=== PATIENT | female | born 1965 | race Hispanic/Latino ===

== ENCOUNTER 2016-09-27 19:09 | Emergency (ER) | payer BC ==
[2016-09-27 19:38] VITALS: RESP 20; TEMP 98.1; O2SAT 98
--- NOTE | 2016-09-27 19:41 | C.PDOC ---
History Of Present Illness Patient presents to the emergency room with right flank pain and right sided abdominal pain that started yesterday. Patient states that it hurts to move. Patient denies any fever, chills, nausea, vomiting, diarrhea, or any other complaints. Time Seen by Provider: 09/27/16 19:41 Chief Complaint (Nursing): Abdominal Pain History Per: Patient History/Exam Limitations: no limitations Onset/Duration Of Symptoms: Days (1) Current Symptoms Are (Timing): Still Present Severity: Moderate Pain Scale Rating Of: 5 Location Of Pain/Discomfort: RLQ Quality Of Discomfort: "Pain" Associated Symptoms: Back Pain (Right flank pain). denies: Fever, Chills, Nausea, Vomiting, Diarrhea Exacerbating Factors: Movement Alleviating Factors: None Recent travel outside of the [place]: No Past Medical History Reviewed: Historical Data, Nursing Documentation, Vital Signs Vital Signs: Last Vital Signs Temp 98.1 F 09/27/16 19:35 Pulse 76 09/27/16 19:35 Resp 20 09/27/16 19:35 BP 116/68 09/27/16 21:22 Pulse Ox 98 09/27/16 20:54 - [employer] Procedures INJECT/INFUSE NEC (06/01/14) Family History: States: Unknown Family Hx - Social History Hx Alcohol Use: Yes Hx Substance Use: No - Immunization History Hx Tetanus Toxoid Vaccination: No Hx Influenza Vaccination: Yes Review Of Systems Constitutional: Negative for: Fever, Chills Cardiovascular: Negative for: Chest Pain Respiratory: Negative for: Shortness of Breath Gastrointestinal: Positive for: Abdominal Pain (Right sided abdominal pain. ). Negative for: Nausea, Vomiting, Diarrhea Musculoskeletal: Positive for: Back Pain (Right flank pain) Physical Exam - Physical Exam Appears: Non-toxic Skin: Warm, Dry Cardiovascular: Rhythm Regular Respiratory: No Rales, No Rhonchi, No Wheezing Gastrointestinal/Abdominal: Soft, Tenderness (RLQ tenderness), No Distention, Guarding (Voluntary guarding), No Rebound Extremity: Normal ROM, No Tenderness Neurological/Psych: Oriented x3, Normal Speech ED Course And Treatment - Laboratory Results Result Diagrams: 09/27/16 19:57 09/27/16 19:57 O2 Sat by Pulse Oximetry: 98 Pulse Ox Interpretation: Normal Progress Note: blood work, ivf, ct scan Reevaluation Time: 22:48 Reassessment Condition: Improved Disposition Counseled Patient/Family Regarding: Studies Performed, Diagnosis, Need For Followup, Rx Given - Disposition Referrals: [facility] [Outside] Disposition: HOME/ ROUTINE Disposition Time: 19:41 Condition: FAIR Prescriptions: Polyethylene Glycol 3350 [Miralax] 17 gm PO DAILY #270 ml Instructions: Abdominal Pain (ED), Constipation (DC) Print Language: JAPANESE - Clinical Impression Clinical Impression: Abdominal pain, Constipation - Scribe Statement The provider has reviewed the documentation as recorded by the Scribe Provider Attestation: Favio Perez Provider Scribe Attestation: All medical record entries made by the Scribe were at my direction and personally dictated by me. I have reviewed the chart and agree that the record accurately reflects my personal performance of the history, physical exam, medical decision making, and the department course for this patient. I have also personally directed, reviewed, and agree with the discharge instructions and disposition.
[2016-09-27] MEDS ORDERED: Sodium Chloride 0.9% 1,000 ML IV ONE (19:44)
[2016-09-27] MEDS ORDERED: Sodium Chloride 0.9% 1,000 ML ONE (19:58)
[2016-09-27 20:03] LABS: RBC URINE 6 /hpf (0-3); URINE BACTERIA RARE (<OCC); URINE BILIRUBIN NEGATIVE (NEGATIVE); URINE BLOOD 1+ (NEGATIVE); URINE COLOR Amber (YELLOW); URINE GLUCOSE (UA) NORMAL (Normal); URINE KETONE NEGATIVE (NEGATIVE); URINE PROTEIN NEGATIVE (NEGATIVE); WBC URINE 6 /hpf (0-5)
[2016-09-27 20:04] LABS: URINE LEUKOCYTE ESTERASE TRACE Leu/uL (Negative)
[2016-09-27 20:09] LABS: CHLORIDE 103 mmol/L (98-107)
[2016-09-27 20:10] LABS: POTASSIUM 3.5 mmol/L (3.6-5.2); SODIUM 140 mmol/L (132-148)
[2016-09-27 20:12] LABS: AST/SGOT 47 U/L (14-36); BILIRUBIN,TOTAL 1.4 mg/dL (0.2-1.3); CARBON DIOXIDE 24 mmol/L (22-30); GFR AFRICAN-AMERICAN > 60
[2016-09-27 20:13] LABS: ALB/GLOB RATIO 1.5 (1.0-2.1); ALKALINE PHOSPHATASE 66 U/L (38-126); ALT/SGPT 65 U/L (9-52); BLOOD UREA NITROGEN 13 mg/dL (7-17); GLUCOSE,RANDOM 80 mg/dL (65-105); TOTAL PROTEIN 7.5 g/dL (6.3-8.3)
[2016-09-27 20:23] LABS: BASO # 0.1 K/uL (0.0-0.2); BASO % 0.9 % (0.0-2.0); EOS # 0.1 K/uL (0.0-0.7); EOS % 1.4 % (0.0-4.0); HEMATOCRIT 43.9 % (34.0-47.0); LYMPH % 30.5 % (20.0-40.0); MEAN CELL VOLUME 88.7 fL (81.0-99.0); MEAN CORPUSCULAR HEMOGLOBIN 30.4 pg (27.0-31.0); MEAN CORPUSCULAR HGB CONC 34.2 g/dL (33.0-37.0); MEAN PLATELET VOLUME 9.6 fL (7.2-11.7); MONO # 0.4 K/uL (0.0-0.8); MONO % 5.7 % (0.0-10.0); NRBC % 0.2 % (0.0-2.0); RED CELL DISTRIBUTION WIDTH 12.6 % (11.5-14.5); WHITE BLOOD COUNT 6.7 K/uL (4.8-10.8)
[2016-09-27 20:38] LABS: INR 0.9
[2016-09-27] MEDS ORDERED: Morphine 4 MG/ML VIAL ONE (20:49)
[2016-09-27] MEDS ORDERED: Iohexol 350mg/ml 100 ML ONE (21:34)
[2016-09-27 23:05] VITALS: BP 112/68; PULSE 68
--- NOTE | 2016-09-28 07:45 | CT ---
PROCEDURE: CT Abdomen and Pelvis with intravenous contrast HISTORY: Abdominal pain COMPARISON: None. TECHNIQUE: Axial computed tomographic images of the abdomen and pelvis were performed with intravenous contrast. Subsequently, sagittal and coronal reformatted images were obtained.. 100 cc of Omnipaque 350 intravenous contrast was administered. Radiation dose: Total exam DLP = 237 mGy-cm. This CT exam was performed using one or more of the following dose reduction techniques: Automated exposure control, adjustment of the mA and/or kV according to patient size, and/or use of iterative reconstruction technique. FINDINGS: LOWER THORAX: Unremarkable. LIVER: Unremarkable. No gross lesion or ductal dilatation. GALLBLADDER AND BILE DUCTS: Unremarkable. PANCREAS: Pancreatic duct measures 3 millimeters, upper limits of normal. Mild heterogeneity at the head of the pancreas, nonspecific. SPLEEN: Unremarkable. 1.3 centimeter low-attenuation lesion seen within the anterior spleen measuring a Hounsfield unit attenuation of 11 suggestive for a cyst. ADRENALS: Unremarkable. No mass. KIDNEYS AND URETERS: Unremarkable. No hydronephrosis. No solid mass. Small hypodensity in the midpole of the right kidney measuring 7 millimeters, too small to adequately characterize. VASCULATURE: Unremarkable. No aortic aneurysm. BOWEL: The right and transverse colon are distended with stool consistent with constipation. APPENDIX: Unremarkable. Normal appendix. PERITONEUM: Unremarkable. No free fluid. No free air. LYMPH NODES: Unremarkable. No enlarged lymph nodes. BLADDER: Unremarkable. REPRODUCTIVE: Rounded low-attenuation structure in the left uterine fundus suggestive for possible focal pocket of endometrial fluid versus cyst versus fibroid versus additional etiology. Correlation with pelvic ultrasound may be helpful if clinically indicated. BONES: Degenerative changes in the spine. Small sclerotic focus in the left iliac bone may represent prominent bone island. OTHER FINDINGS: None. IMPRESSION: Fecal retention in the right hemicolon. Rounded low-attenuation structure in the left uterine fundus suggestive for possible focal pocket of endometrial fluid versus cyst versus fibroid versus additional etiology. Correlation with pelvic ultrasound may be helpful if clinically indicated. Pancreatic duct measures 3 millimeters, upper limits of normal. Mild heterogeneity at the head of the pancreas, nonspecific. Small hypodensity in the midpole of the right kidney measuring 7 millimeters, too small to adequately characterize. These findings were preliminarily reported at 10:21 p.m. on 09/27/[address] Marylou Mtz from [facility].
== END 2016-09-27 23:05 | disposition home or self-care (01) ==
LOC: C.ER 19:09
DX: K59.00 Constipation, unspecified (principal); R10.31 Right lower quadrant pain
CPT/HCPCS: 74177; 80053; 81001; 83690; 84703; 85025; 85610; 85730; 96361; 96374; 96375; 96376; 99285; J2270; J2405; J7040; Q9967